=== PATIENT | male | born 1955 | race Caucasian/White ===

== ENCOUNTER 2024-09-16 06:07 | Day surgery (SDC) | payer OTHER, SELFPAY ==
[2024-09-16 06:55] VITALS: BMI 23.8
[2024-09-16 07:07] VITALS: BP 138/77; BMI 23.8
[2024-09-16 07:11] LABS: Glucose - Point of Care 153 mg/dl (70-99)
[2024-09-16 08:45] VITALS: BP 132/71
[2024-09-16 09:00] VITALS: BP 138/73
[2024-09-16 09:15] VITALS: BP 131/72
== END 2024-09-16 09:37 | disposition home or self-care (01) ==
LOC: SDS 06:07
PROVIDERS: ATTENDING PHYSICIAN Student in an Organized Health Care Education/Training Program
DX: D12.2 Benign neoplasm of ascending colon (principal); K63.5 Polyp of colon; Q85.89 Other phakomatoses, not elsewhere classified; D12.8 Benign neoplasm of rectum; D50.9 Iron deficiency anemia, unspecified; R19.4 Change in bowel habit; K64.0 First degree hemorrhoids; K20.90 Esophagitis, unspecified without bleeding; K29.50 Unspecified chronic gastritis without bleeding; K31.89 Other diseases of stomach and duodenum; Q40.2 Other specified congenital malformations of stomach; Z80.0 Family history of malignant neoplasm of digestive organs
CPT/HCPCS: 45385; 45380; 43239; 88305; 82962; 88342

== ENCOUNTER 2025-01-20 06:25 | Day surgery (SDC) | payer OTHER, SELFPAY ==
[2025-01-20 13:50] LABS: Glucose - Point of Care 100 mg/dl (70-99)
== END 2025-01-20 15:31 | disposition home or self-care (01) ==
LOC: GI 06:25
PROVIDERS: ATTENDING PHYSICIAN Student in an Organized Health Care Education/Training Program
DX: Z12.11 Encounter for screening for malignant neoplasm of colon (principal); K64.8 Other hemorrhoids; K57.30 Diverticulosis of large intestine without perforation or abscess without bleeding; D12.3 Benign neoplasm of transverse colon; D12.2 Benign neoplasm of ascending colon; Z86.0101 Personal history of adenomatous and serrated colon polyps; Z80.0 Family history of malignant neoplasm of digestive organs
CPT/HCPCS: 45385; 45380; 82962; 88305